=== PATIENT | female | born 1945 | race Caucasian/White ===

== ENCOUNTER 2017-01-11 18:07 | Emergency (ER) | payer BC, OTHER ==
[2017-01-11 17:35] LABS: BASOPHILS 2.3 %; EOSINOPHILS 4.6 %; HEMATOCRIT 40.8 % (36.0-48.0); HEMOGLOBIN 13.8 g/dL (12.0-16.0); IMMATURE GRANULOCYTES 0.5 %; IMMATURE GRANULOCYTES ABSOLUTE 0.02 10/3/uL (0.0-0.11); LYMPHOCYTES 46.7 %; LYMPHOCYTES ABSOLUTE 2.04 10/3/uL (0.67-4.30); MEAN CORPUS HGB CONC 33.8 g/dL (32.0-36.0); MEAN CORPUSCULAR HEMOGLOB 30.1 pg (26.0-34.0); MEAN CORPUSCULAR VOLUME 88.9 fL (80-100); MEAN PLATELET VOLUME 10.6 fL (9.2-13.0); MONOCYTES 7.3 %; MONOCYTES ABSOLUTE 0.32 10/3/uL (0.21-1.20); NEUTROPHILS 38.6 %; NEUTROPHILS ABSOLUTE 1.69 10/3/uL (2.02-8.40); PLATELET COUNT 174 10/3/uL (150-400); RBC DISTRIBUTION WIDTH 13.5 % (12.0-16.0); RED CELL COUNT 4.59 10/6/uL (4.0-5.6); WHITE BLOOD CELLS 4.4 10/3/uL (4.5-10.5)
[2017-01-11 17:36] LABS: MANUAL DIFF NO %
[2017-01-11 17:41] LABS: INTERNATIONAL NORMAL RATI 1.9 UNITS (-); PARTIAL THROMBO TIME 35.4 SEC (22.5-37.2); PROTIME (NOT ORD) 21.9 SEC (12.0-14.5)
[2017-01-11 17:50] LABS: BUN (BLOOD UREA NITROGEN) 22 MG/DL (6-23); CALCIUM, SERUM 9.6 MG/DL (8.5-10.4); CHEST PAIN PROFILE TAT 0 Hrs 21 Mins; CHLORIDE, SERUM 108 MMOL/L (96-112); CREATININE 1.11 MG/DL (0.55-1.02); GFR AFRICAN AMERICAN 58 ML/MIN (>=60); GFR NON AFRICAN AMERICAN 50 ML/MIN (>=60); POTASSIUM, SERUM 4.1 MMOL/L (3.5-5.3); SODIUM, SERUM 140 MMOL/L (135-148); TROPONIN I <0.02 NG/ML (<0.05)
[2017-01-11 17:52] LABS: CO2 (CARBON DIOXIDE) 24 MMOL/L (24-34); GLUCOSE, SERUM 88 MG/DL (60-99)
[2017-01-11 18:07] LABS: BASOPHILS 3 %; BASOPHILS ABSOLUTE (CALC) 0.13 10/3/uL (0.0-0.16); EOSINOPHILS 6 %; EOSINOPHILS ABSOLUTE (CALC) 0.26 10/3/uL (0.0-0.53); ER DIFF TAT 0 Hrs 38 Mins; LYMPHOCYTES 43 %; LYMPHOCYTES ABSOLUTE (CALC) 1.89 10/3/uL (0.67-4.30); MONOCYTES 7 %; MONOCYTES ABSOLUTE (CALC) 0.31 10/3/uL (0.21-1.20); PLATELET ESTIMATE ADQ (ADEQUATE); RBC MORPHOLOGY NORM (NORMAL); SEGMENTED NEUTROPHIL (0) 41 %; TOTAL NUCLEATED CELLS 100
== END 2017-01-11 19:42 | disposition home or self-care (01) ==
LOC: ER 18:07
PROVIDERS: Emergency Medicine
DX: I10 Essential (primary) hypertension (principal); I48.91 Unspecified atrial fibrillation; F41.9 Anxiety disorder, unspecified; Z88.2 Allergy status to sulfonamides; Z88.8 Allergy status to other drugs, medicaments and biological substances
CPT/HCPCS: 71010; 80048; 83735; 84484; 85025; 85610; 85730; 93005; 96374; 96376; 99284